=== PATIENT | female | born 1940 | race Caucasian/White ===

== ENCOUNTER 2017-06-20 09:47 | Outpatient (CLI) | payer MEDICARE, OTHER ==
[~2017-06-20] VITALS: Ht 167.6 cm; Wt 104.5 kg
[~2017-06-20 09:47] MED LIST: AMBIEN10 MG PO; COLACE100 MG PO; ELIQUIS2.5 MG PO; HYDROCODONE-APA1 TAB PO; MS CONTIN30 MG PO; MULTI-DAY VITAM1 TAB PO; PRILOSEC20 MG PO; PROZAC40 MG PO; REQUIP5 MG PO; SENOKOT-S TABLE1 TAB PO; SYNTHROID150 MCG PO; VASERETIC 10-251 TAB PO; VOLTAREN100 MG PO
[2017-06-20 10:43] VITALS: BP 119/66; Ht 167.6 cm; Wt 104.5 kg
== END 2017-06-20 10:54 | disposition home or self-care (01) ==
LOC: D.OPS 09:47
DX: N39.0 Urinary tract infection, site not specified (principal)

== ENCOUNTER → 2017-06-21 09:51 | Outpatient (CLI) | payer MEDICARE, OTHER ==
[~2017-06-21] VITALS: Ht 167.6 cm; Wt 104.5 kg
[2017-06-21 10:49] VITALS: BP 142/81; Ht 167.6 cm; Wt 104.5 kg
== END | disposition home or self-care (01) ==
LOC: D.OPS 09:51
DX: N39.0 Urinary tract infection, site not specified (principal)

== ENCOUNTER 2017-06-22 09:50 | Outpatient (CLI) | payer MEDICARE, OTHER ==
[~2017-06-22] VITALS: Ht 167.6 cm; Wt 104.5 kg
[2017-06-22 10:15] VITALS: BP 133/74; Ht 167.6 cm; Wt 104.5 kg
== END 2017-06-22 11:00 | disposition home or self-care (01) ==
LOC: D.OPS 09:50 → D.MS 09:53 → D.OPS 11:00
DX: N39.0 Urinary tract infection, site not specified (principal)

== ENCOUNTER 2017-06-23 09:54 | Outpatient (CLI) | payer MEDICARE, OTHER ==
[~2017-06-23] VITALS: Ht 167.6 cm; Wt 104.5 kg
[2017-06-23 11:01] VITALS: Ht 167.6 cm; Wt 104.5 kg
== END 2017-06-23 10:50 | disposition home or self-care (01) ==
LOC: D.OPS 09:54 → D.MS 10:08 → D.OPS 10:50
DX: N39.0 Urinary tract infection, site not specified (principal)

== ENCOUNTER 2017-06-24 09:50 | Outpatient (CLI) | payer MEDICARE, OTHER ==
[~2017-06-24] VITALS: Ht 167.6 cm; Wt 104.5 kg
[2017-06-24 10:11] VITALS: BP 136/69; Ht 167.6 cm; Wt 104.5 kg
== END 2017-06-24 10:23 | disposition home or self-care (01) ==
LOC: D.OPS 09:50
DX: N39.0 Urinary tract infection, site not specified (principal)

== ENCOUNTER 2017-06-25 09:54 | Outpatient (CLI) | payer MEDICARE, OTHER ==
[~2017-06-25] VITALS: Ht 167.6 cm; Wt 104.5 kg
[2017-06-25 10:25] VITALS: BP 125/63; Ht 167.6 cm; Wt 104.5 kg
== END 2017-06-25 10:40 | disposition home or self-care (01) ==
LOC: D.OPS 09:54
DX: N39.0 Urinary tract infection, site not specified (principal)

== ENCOUNTER → 2017-06-26 09:44 | Outpatient (CLI) | payer MEDICARE, OTHER ==
[~2017-06-26] VITALS: Ht 167.6 cm; Wt 104.5 kg
[2017-06-26 10:04] VITALS: Ht 167.6 cm; Wt 104.5 kg
== END | disposition home or self-care (01) ==
LOC: D.OPS 09:44
DX: N39.0 Urinary tract infection, site not specified (principal)

== ENCOUNTER → 2017-08-02 08:15 | Outpatient (CLI) | payer MEDICARE, OTHER ==
[2017-06-26 10:04] VITALS: BMI 37.2
== END | disposition home or self-care (01) ==
LOC: D.MAMMO 08:15
DX: Z12.31 Encounter for screening mammogram for malignant neoplasm of breast (principal)

== ENCOUNTER → 2017-08-20 23:50 | Outpatient (CLI) | payer MEDICARE, OTHER ==
[2017-06-26 10:04] VITALS: BMI 37.2
== END | disposition home or self-care (01) ==
LOC: D.MAMMO 12:00
DX: R92.8 Other abnormal and inconclusive findings on diagnostic imaging of breast (principal)